=== PATIENT | male | born 1970 | race Caucasian/White ===

== ENCOUNTER 2016-12-12 06:28 | Emergency (ER) | payer MEDICAID ==
[2016-12-12] MEDS ORDERED: Albuterol 6.7 GM Inhaler INH ONE (06:46)
--- NOTE | 2016-12-12 06:46 | EDM.PDOC ---
ED HPI GENERAL MEDICAL PROBLEM - General Chief Complaint: General Stated Complaint: COUGH AND CONGESTION Time Seen by Provider: 12/12/16 06:37 - History of Present Illness INITIAL COMMENTS - FREE TEXT/NARRATIVE: 46-year-old male presents to emergency department with a 3 week history of worsening cough. Patient has noticed a cough getting more moist with off-color sputum over the last several days. Patient denies any fevers or chills. He has not had significant nasal congestion or drainage. He has a history of bronchitis in the past. Currently the patient does not smoke. - Related Data Allergies Allergy/AdvReac Type Severity Reaction Status Date / Time cephalexin [From Keflex] Allergy Diarrhea Verified 12/12/16 06:36 Home Meds: Home Meds Doxycycline [Vibramycin] 100 mg PO Q12HR #14 cap 12/12/16 [Rx] Methylphenidate HCl 10 mg PO DAILY 12/12/16 [History] Sertraline [Zoloft] 50 mg PO DAILY 12/12/16 [History] ED ROS GENERAL - Review of Systems Review Of Systems: See Below Constitutional: Reports: No Symptoms HEENT: Reports: No Symptoms Respiratory: Reports: Cough, Sputum. Denies: Shortness of Breath, Wheezing Cardiovascular: Reports: No Symptoms GI/Abdominal: Reports: No Symptoms ED EXAM, GENERAL - Physical Exam Exam: See Below Exam Limited By: No Limitations General Appearance: Alert, No Apparent Distress Ears: Normal External Exam, Normal Canal, Hearing Grossly Normal, Normal TMs Nose: Normal Inspection, Normal Mucosa, No Blood Throat/Mouth: Normal Inspection, Normal Lips, Normal Oropharynx, Normal Voice, No Airway Compromise Head: Atraumatic, Normocephalic Neck: Normal Inspection, Supple, Non-Tender, Full Range of Motion Respiratory/Chest: No Respiratory Distress, Lungs Clear, No Accessory Muscle Use , Chest Non-Tender, Other (He has some coarse breath sounds no crackles or rhonchi or wheezes noted). No: Normal Breath Sounds Cardiovascular: Normal Peripheral Pulses, Regular Rate, Rhythm, No Edema Course - Vital Signs Last Recorded V/S: Last Vital Signs Temp 36.3 C 12/12/16 06:32 Pulse 72 12/12/16 06:32 Resp 18 12/12/16 06:32 BP 153/103 H 12/12/16 06:32 Pulse Ox 99 12/12/16 06:32 Departure - Departure Time of Disposition: 06:48 Disposition: Home, Self-Care 01 Clinical Impression: Bronchitis - Discharge Information Prescriptions: Doxycycline [Vibramycin] 100 mg PO Q12HR #14 cap Referrals: PCP,None [Primary Care Provider] - Forms: ED Department Discharge Additional Instructions: Return to the emergency room with any questions problems worsening symptoms. You have been started on 2 medications the first one is an albuterol inhaler your given 1 here in the emergency room 2 puffs every 4 hours while awake. Use the inhaler for 3-4 weeks. You have also been started on doxycycline this is an antibiotic take one twice daily for a week. Follow-up in the Hospital clinic if needed. [phone]. Imaging take several weeks for the cough to resolve.
== END 2016-12-12 07:07 | disposition home or self-care (01) ==
LOC: JD.ED 06:28
DX: J40 Bronchitis, not specified as acute or chronic (principal); Z88.1 Allergy status to other antibiotic agents; Z79.899 Other long term (current) drug therapy
CPT/HCPCS: 99283; A9270

== ENCOUNTER 2016-12-14 11:51 | Emergency (ER) | payer MEDICAID ==
--- NOTE | 2016-12-14 12:08 | EDM.PDOC ---
ED HPI GENERAL MEDICAL PROBLEM - General Chief Complaint: Gastrointestinal Problem Stated Complaint: POSS REACTION TO MEDS Time Seen by Provider: 12/14/16 12:08 - History of Present Illness INITIAL COMMENTS - FREE TEXT/NARRATIVE: 46-year-old male returns emergency room with loose stools and lots of gas. Patient was started on antibiotics couple of days ago for bronchitis. His bronchitis is doing much better he was also started on albuterol MDI. Patient was started on doxycycline twice daily and following the doxycycline the patient has 2-3 loose stools with lots of gas this seems to correlate with the doses of antibiotics. Patient takes antibiotics and within an hour develops the symptoms. The patient is breathing much better his cough is much better he is using the albuterol MDI as directed. He is not having significant abdominal pain or discomfort. He denies fevers chills. - Related Data Allergies Allergy/AdvReac Type Severity Reaction Status Date / Time cephalexin [From Keflex] Allergy Diarrhea Verified 12/14/16 11:59 Home Meds: Home Meds Doxycycline [Vibramycin] 100 mg PO Q12HR #14 cap 12/12/16 [Rx] Methylphenidate HCl 10 mg PO DAILY 12/12/16 [History] Sertraline [Zoloft] 50 mg PO DAILY 12/12/16 [History] Past Medical History Respiratory History: Reports: Bronchitis, Recurrent Psychiatric History: Reports: ADHD, Depression Social & Family History - Tobacco Use Smoking Status *Q: Never Smoker Used Tobacco, but Quit: Yes Month Tobacco Last Used: 2008 Second Hand Smoke Exposure: No - Caffeine Use Caffeine Use: Reports: None - Recreational Drug Use Recreational Drug Use: Yes Drug Use in Last 12 Months: No Recreational Drug Type: Reports: Methamphetamine Other Recreational Drug Type: 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 ED ROS GENERAL - Review of Systems Review Of Systems: See Below Constitutional: Reports: No Symptoms HEENT: Reports: No Symptoms Respiratory: Reports: Cough (This is improving). Denies: Sputum (He no longer is coughing up sputum) Cardiovascular: Reports: No Symptoms GI/Abdominal: Reports: Diarrhea. Denies: Abdominal Pain, Constipation, Nausea, Vomiting : Reports: No Symptoms ED EXAM, GENERAL - Physical Exam Exam: See Below Exam Limited By: No Limitations General Appearance: Alert, No Apparent Distress Respiratory/Chest: No Respiratory Distress, Lungs Clear, Normal Breath Sounds Cardiovascular: Regular Rate, Rhythm, No Edema, No Murmur GI/Abdominal: Normal Bowel Sounds, Soft, Non-Tender Extremities: Normal Inspection, No Pedal Edema Course - Vital Signs Last Recorded V/S: Last Vital Signs Temp 36.3 C 12/14/16 12:00 Pulse 80 12/14/16 12:00 Resp 18 12/14/16 12:00 BP 165/101 H 12/14/16 12:00 Pulse Ox 99 12/14/16 12:00 - Orders/Labs/Meds Orders: Active Orders 24 hr Category Date Time Status C DIFFICILE BY PCR W/NAP1 [[facility]LEC] Stat Lab 12/14/16 13:30 Received - Re-Assessments/Exams Free Text/Narrative Re-Assessment/Exam: 12/14/16 14:10 Patient needs to get going the airway on his C. difficile toxin he has given us a working phone number and we can call him with results of this if needed. He will follow-up in the clinic early this next week to see how he is doing he needs follow-up on his blood pressure Departure - Departure Time of Disposition: 14:10 Disposition: Home, Self-Care 01 Clinical Impression: Bronchitis, Antibiotic-associated diarrhea - Discharge Information Instructions: Diarrhea, Adult, Acute Bronchitis, [id number], Antibiotic Medicine Referrals: PCP,None [Primary Care Provider] - Forms: ED Department Discharge Additional Instructions: Return to the emergency room with any questions problems worsening symptoms. Continue using albuterol inhaler as it seems to be helping. Stop the doxycycline, this is the antibiotic most likely responsible for making your loose stools worse. Stop the antibiotics at this point. You may return to work. Follow-up at the Hospital clinic early this next week. [phone] - My Orders Last 24 Hours: My Active Orders 12/14/16 13:30 C DIFFICILE BY PCR W/NAP1 [MOLEC] Stat - Assessment/Plan Last 24 Hours: My Active Orders 12/14/16 13:30 C DIFFICILE BY PCR W/NAP1 [MOLEC] Stat
== END 2016-12-14 14:15 | disposition home or self-care (01) ==
LOC: JD.ED 11:51
DX: K52.1 Toxic gastroenteritis and colitis (principal); T36.95XA Adverse effect of unspecified systemic antibiotic, initial encounter; J40 Bronchitis, not specified as acute or chronic; Z79.899 Other long term (current) drug therapy; Z88.1 Allergy status to other antibiotic agents
CPT/HCPCS: 87493; 99282; 99284